=== PATIENT | male | born 1980 | race Caucasian/White ===

== ENCOUNTER 2019-05-22 08:15 | Emergency (ER) | payer SELFPAY ==
[2019-05-22 08:17] VITALS: BP 141/83; PULSE 112; RESP 12; TEMP 36.9; O2SAT 96; BMI 22.5
--- NOTE | 2019-05-22 08:19 | CT_ITS ---
STUDY: CT BRAIN WITHOUT CONTRAST REASON FOR EXAM: Male, 38 years old. Seizure. History of ventriculoperitoneal shunting. RADIATION DOSAGE (If Supplied By Facility): CTDIvol = ( 60.81 ) mGy, DLP = ( 1067.08 ) mGycm TECHNIQUE: Transaxial CT imaging of the brain was performed without administration of intravenous contrast material. Individualized dose optimization techniques were used for this CT. COMPARISON: No relevant priors. FINDINGS: A right-sided shunt catheter is seen in the right frontal region. This is seen within a 4.8 cm x 1.6 cm x 1.4 cm CSF collection. This may represent an arachnoid cyst. Normal calvarium. Normal size ventricles and extra-axial spaces for the patient's age. Normal white matter tracts of the cerebral hemispheres. Normal basal ganglia and thalami. Normal brainstem. Normal cerebellum. There is no intracranial hemorrhage. There are no findings of an acute ischemic infarction. Opacification of the left maxillary sinus. Mucosal thickening of the ethmoid sinus. CT/Brain/Head without Contrast IMPRESSION: Right-sided shunt tube within the right frontal region overlying a CSF collection as described most likely representing an arachnoid cyst. Electronically Signed: John Lockhart, at 9:13 EST , Service support ,
--- NOTE | 2019-05-22 08:20 | EKG12_ITS ---
Test Reason : SEIZURES Blood Pressure : / mmHG Vent. Rate : 089 BPM Atrial Rate : 089 BPM P-R Int : 138 ms QRS Dur : 094 ms QT Int : 368 ms P-R-T Axes : 064 072 068 degrees QTc Int : 447 ms Normal sinus rhythm Normal ECG Confirmed by LORENZO BUNCH, JONAS ([id number]), editorial writer ANDRZEJ TOM ([id number]) on 05/24/2019 1:54:46 PM Referred By: SEAN Confirmed By:JONAS VENTURA MD
--- NOTE | 2019-05-22 08:22 | ED.VIS.GEN ---
History of Present Illness Chief Complaint: Seizure Informant: Patient Onset: Today Current Severity: Mild Maximum Severity: Moderate Narrative: Patient is transported after a witnessed seizure at work. He has a history of seizures, he has a [employer] shunt and he is on Dilantin. He denies any recent fevers or chills, initially he is postictal but he is rapidly improving and I can get a reasonable history and review of systems. He had started his job about 2 weeks ago, and this was witnessed at work. By the time the paramedics arrived he was postictal and seizure activity was not witnessed by them. He tells me he is compliant with his medications. Past Medical History - Allergies and Home Meds Allergies/Adverse Reactions: Allergies No Known Allergies Allergy (Verified 05/22/19 08:27) Primary Care Physician: Rachel Snow,Out of [Primary Care Provider] - Past Medical History: - - Seizure disorder, hydrocephalus status post [employer] shunt Surgical History: - - [employer] shunt Smoking Status: Unknown if ever smoked Review of Systems All systems negative except as indicated General: Denies: Fever Eyes: Denies: Visual changes - bilaterally ENT: Denies: Rhinorrhea, Sore throat Cardiovascular: Denies: Chest pain Respiratory: Denies: Dyspnea, Cough Gastrointestinal: Denies: Abdominal pain, Nausea Genitourinary: Denies: Dysuria Musculoskeletal: Denies: Myalgias Skin: Denies: Rash, Abscess Neurological: Denies: Headache Psych: Denies: Depression Endocrine: Denies: Polyuria Hematologic: Denies: Easy bruising Allergy: Denies: Uticaria Physical Exam General: Well nourished, - - Initially postictal but rapidly improved Head: Normocephalic, - - [employer] shunt on the right palpated into the neck and chest wall Eyes: Perrl, EOMI ENT: Moist mucous membranes Neck: Supple Cardiovascular: Regular rate, Regular rhythm Respiratory: No distress, CTA bilaterally Abdomen: Soft, Nontender Back: Nontender, Normal Inspection Extremities: Nontender, - - Moves all extremities without signs of trauma or dislocation Skin: Normal color. Negative for: Trauma Neurological: Alert, Oriented x3, Cranial nerves II-XII grossly intact, Normal Strength, Normal Sensation Psychological: Normal affect Diagnostic/Tx/Re-eval - Rhythm Strip Rhythm Strip: Sinus Rhythm Rate: 89 Ectopy: None - EKG Initial EKG Interpretation: Sinus Rhythm, - - Normal MI normal QTC intervals. No ischemic changes Interpreted by emergency doctor - Medical Decision Making Patient has a normal work-up in the emergency department other than a subtherapeutic Dilantin of 0.7. He did tell me when I confronted him again that he ran out of his Dilantin and he did not have money and is been out of it for a few days. He tells me now he has the Dilantin. I will load him with IV Dilantin and discharged home in the care of his boss. Discharge stable condition ED Disposition - Plan for ED Patient: Disposition: Home or Assisted Living Diagnosis: Seizure disorder Instructions: SEIZURE, Recurrent [Adult] Referrals: [facility] Doctor,Out of [Primary Care Provider] - 3-5 Days
[2019-05-22 08:23] VITALS: PULSE 92; RESP 13; O2SAT 99
[2019-05-22] MEDS: 0.9% Normal Saline 1,000 ML 1000 ML IV (08:32)
[2019-05-22 08:36] LABS: Absolute Lymphocyte Count 2.02 X10^3/uL (0.83-4.51); Absolute Neutrophil Count 15.5 X10^3/uL (2.0-7.7); Basophil# 0.06 X10^3/uL; Basophil% 0.3 % (0-1); Eosinophil# 0.06 X10^3/uL; Eosinophils% 0.3 % (0-5); Hematocrit 42.5 % (40-54); Hemoglobin 14.7 g/dL (13.0-16.5); Lymphocyte # 2.02 X10^3/ul (4.0); Lymphocyte % 10.6 % (19-41); Mean Corp Hgb Conc 34.6 g/dL (32-36); Mean Corpuscular Hgb 34.6 pg (27.0-32.0); Mean Platelet Vol. 10.8 fl (6.2-12.0); Monocyte% 6.3 % (0-10); NRBC Flagged by Analyzer 0 % (0-5); Neutrophil # 15.52 X10^3/uL (2.7-7.7); Neutrophil % 81.9 % (47-70); Platelet Count 189 K/mm3 (150-450); Red Blood Count 4.25 M/mm3 (4.6-6.2)
[2019-05-22 08:54] LABS: ALB/GLOB Ratio 1.1 RATIO (0.9-2.4); AST(SGOT) 34 U/L (15-37); Alanine Aminotransfer ALT/SGPT 30 U/L (16-61); Albumin, Serum 4.1 g/dL (3.2-5.0); Alkaline Phosphatase 104 U/L (45-117); Anion Gap 9 (5-15); BUN 21 mg/dL (7-18); BUN/Creat Ratio 20.2 RATIO (10-20); Calcium,Total 9.1 mg/dL (8.5-10.1); Chloride 101 mmol/L (98-107); Creatinine, Serum 1.04 mg/dL (0.70-1.30); EST Glomerular Filtration Rate 84 mL/min (>60); Est Glom Filt Rate - Afr Amer 102 mL/min (>60); Estimated Creatinine Clearance 104.53 ml/min; Globulin 3.8 g/dL (2.2-4.2); Glucose 114 mg/dL (74-106); Potassium 3.7 mmol/L (3.5-5.1); Protein, Total 7.9 g/dL (6.4-8.2); Sodium Level 136 mmol/L (136-145)
[2019-05-22 09:02] LABS: Phenytoin (Dilantin) Level 0.7 mL (10.0-20.0)
[2019-05-22 10:24] VITALS: BP 129/94; PULSE 87; RESP 19
[2019-05-22 11:26] VITALS: BP 124/74; PULSE 72; RESP 15
== END 2019-05-22 11:37 | disposition home or self-care (01) ==
PROVIDERS: Emergency Provider Emergency Medicine
DX: G40.909 Epilepsy, unspecified, not intractable, without status epilepticus (principal); Z98.2 Presence of cerebrospinal fluid drainage device
CPT/HCPCS: 70450; 80053; 80185; 85025; 93005; 96361; 96365; 99285; J7030; A4216